=== PATIENT | female | born 1990 | race African-American/Black ===

== ENCOUNTER 2018-03-27 12:43 | Emergency (ER) | payer MEDICAID ==
[~2018-03-27] VITALS: Ht 162.6 cm; Wt 57.0 kg
[2018-03-27 13:06] VITALS: BP 159/78
== END 2018-03-27 22:13 | disposition left against medical advice (07) ==
LOC: ER 14:38
DX: R07.9 Chest pain, unspecified (principal); Z53.21 Procedure and treatment not carried out due to patient leaving prior to being seen by health care provider
CPT/HCPCS: 93005